=== PATIENT | male | born 1995 | race Caucasian/White ===

== ENCOUNTER 2021-05-28 17:50 | Emergency (ER) | payer BC ==
[~2021-05-28] VITALS: Ht 185.4 cm; Wt 104.3 kg
[2021-05-28 18:03] VITALS: BP 122/71
[2021-05-28] MEDS ORDERED: IBUP-1955 PO (18:16)
[2021-05-28] MEDS ORDERED: HYDR-4303 PO (18:16)
--- NOTE | 2021-05-28 18:27 | NUR ---
Patient discharged to home in stable condition. Written and verbal after care instructions given. Patient verbalizes understanding of instruction.
== END 2021-05-28 18:27 | disposition home or self-care (01) ==
LOC: ER 17:55
DX: S01.81XD Laceration without foreign body of other part of head, subsequent encounter (principal); R68.84 Jaw pain; W05.1XXD Fall from non-moving nonmotorized scooter, subsequent encounter

== ENCOUNTER 2021-05-29 19:51 | Emergency (ER) | payer BC, OTHER ==
[~2021-05-29] VITALS: Ht 185.4 cm; Wt 90.7 kg
[~2021-05-29 19:51] MED LIST: HYDR-4303 PO; IBUP-1955 PO
[2021-05-29 20:08] VITALS: BP 133/84
== END 2021-05-29 20:21 | disposition home or self-care (01) ==
LOC: ER 20:09
DX: S01.81XD Laceration without foreign body of other part of head, subsequent encounter (principal); X58.XXXD Exposure to other specified factors, subsequent encounter

== ENCOUNTER 2021-07-06 05:25 | Emergency (ER) | payer OTHER ==
[~2021-07-06] VITALS: Ht 185.4 cm; Wt 99.8 kg
[2021-07-06 05:26] VITALS: BP 156/105
== END 2021-07-06 05:55 ==
LOC: ER 05:26
DX: F23 Brief psychotic disorder; F15.10 Other stimulant abuse, uncomplicated